=== PATIENT | female | born 1935 | race Caucasian/White ===

== ENCOUNTER 2020-07-31 21:16 | Inpatient (IN) ==
[2020-07-31] MEDS ORDERED: SODIUM CHLORIDE 0.9% 500 ML IV STA (21:50)
[2020-07-31] MEDS ORDERED: DILTIAZEM 50 MG/10 ML VIAL IV STA (22:06)
[2020-07-31 22:26] LABS: Basophils # 0.1 10*3/uL (0.0-0.2); Basophils % 0.4 % (0.0-0.8); Eosinophils # 0.2 10*3/uL (0.0-0.87); Eosinophils % 1.3 % (0.00-10.9); Immature Granulocytes % 0.5 %; Immature Granulocytes Absolute 0.08 #; Lymphocytes # 0.6 10*3/uL (1.4-4.0); Lymphocytes % 3.8 % (21.3-54.2); Mean Corpuscular HGB Conc 33.3 GM/DL (32-36); Mean Corpuscular Volume 90.1 FL (87-102); Mean Platelet Volume 11.6 FL (9.6-12.0); Monocytes % 2.4 % (1.7-12.7); Neutrophils % 91.6 % (38.7-73.9); Platelet Count 216 T/CUMM (130-400); Red Blood Count 4.33 MC/CUMM (3.8-5.5); White Blood Count 16.6 T/CUMM (4-12)
[2020-07-31 22:32] LABS: Alanine Aminotransferase 16 U/L (13-56); Albumin 3.4 G/DL (3.4-5.0); Alkaline Phosphatase 103 U/L (45-117); Aspartate Amino Transferase 16 U/L (0-37); Blood Urea Nitrogen 29 MG/DL (7-18); Carbon Dioxide 20 MMOL/L (21-32); Estimated Glom Filtration Rate 38 ML/MIN; Glucose 114 MG/DL (74-106); Osmolality,Calculated 289.1 MOS/KG (273-304); Sodium 142 MMOL/L (136-145); Total Protein 6.5 G/DL (6.4-8.2)
[2020-07-31 23:02] LABS: Eosinophils 1 % (0-10); Lymphocytes 3 % (20-55); Platelet Estimate Normal; Segmented Neutrophils 95 % (50-85); Total Cells Counted 100
[2020-07-31 23:04] LABS: Microcytosis Slight; Polychromasia Slight
[2020-07-31 23:05] LABS: Spherocytes Few
[2020-07-31] MEDS: DILTIAZEM INJ 100 MG in SODIUM CHLORIDE 0.9% 100 ML IV SCH (23:52)
[2020-08-01] MEDS ORDERED: ENOXAPARIN 40 MG/0.4 ML SYRINGE SUBCUT STA (00:09)
[2020-08-01] MEDS ORDERED: DEXTROSE 50% 25 GM/50 ML VIAL IV PRN (01:53)
[2020-08-01] MEDS ORDERED: GLUCAGON 1 MG VIAL IM PRN (01:53)
[2020-08-01] MEDS ORDERED: ONDANSETRON 4 MG/2 ML VIAL IV PRN (01:53)
[2020-08-01] MEDS ORDERED: MELATONIN 3 MG TABLET ONE (03:15)
[2020-08-01] MEDS: SODIUM CHLORIDE 0.9% 1,000 ML IV SCH ×2 (03:18→16:53)
[2020-08-01 05:14] LABS: Basophils # 0.1 10*3/uL (0.0-0.2); Basophils % 0.4 % (0.0-0.8); Eosinophils % 0.3 % (0.00-10.9); Hematocrit 38.2 VOL% (35.7-47.0); Hemoglobin 12.3 GM/DL (12.0-16.0); Immature Granulocytes % 0.7 %; Immature Granulocytes Absolute 0.11 #; Lymphocytes # 1.3 10*3/uL (1.4-4.0); Lymphocytes % 8.4 % (21.3-54.2); Mean Corpuscular HGB Conc 32.2 GM/DL (32-36); Mean Corpuscular Volume 91.6 FL (87-102); Mean Platelet Volume 11.3 FL (9.6-12.0); Monocytes % 8.5 % (1.7-12.7); Neutrophils % 81.7 % (38.7-73.9); Platelet Count 225 T/CUMM (130-400); Red Blood Count 4.17 MC/CUMM (3.8-5.5); Red Cell Distribution Width 14.9 % (9.3-17.3); White Blood Count 15.7 T/CUMM (4-12)
[2020-08-01 05:44] LABS: Osmolality,Calculated 286.3 MOS/KG (273-304); Potassium 4.2 MMOL/L (3.5-5.1); Risk Ratio 1.85; Thyroid Stimulating Hormone 1.87 uIU/ml (0.358-3.74); VLDL CHOLESTEROL 9.8 MG/DL
[2020-08-01 08:19] LABS: Bacteria,Urine Occasional /HPF (Few); Bilirubin,Urine Negative (Negative); Blood, Urine Negative (Negative); Glucose,Urine (UA) Negative (Negative); Ketones,Urine Negative (Negative); Mucus,Urine Occasional /LPF (Occasional); Nitrite,Urine Positive (Negative); Protein,Urine Negative; RBC,Urine 3 /HPF (0-4); Squamous Epithelial Cell,Urine Occasional /HPF (0-10); Urine Appearance CLEAR (Clear); Urine Color Yellow (Yellow); Urine Specific Gravity 1.023 (1.001-1.035); Urine Urobilinogen < 2.0 EU/DL (0.2-1.0)
[2020-08-01] MEDS ORDERED: carvediloL 6.25 MG TABLET PO SCH (09:00)
[2020-08-01] MEDS: METOPROLOL TARTRATE 25 MG TABLET PO SCH ×2 (10:15→20:28)
[2020-08-01] MEDS: LEVOFLOXACIN 500 MG TABLET PO SCH (10:15)
[2020-08-01] MEDS ORDERED: METOPROLOL TARTRATE 5 MG/5 ML VIAL IV STA (11:46)
[2020-08-01] MEDS: MELATONIN 3 MG TABLET PO PRN (20:29)
[2020-08-01] MEDS: ASPIRIN EC 81 MG TABLET PO SCH (20:29)
[2020-08-02] MEDS: DILTIAZEM INJ 100 MG in SODIUM CHLORIDE 0.9% 100 ML IV SCH (01:58)
[2020-08-02] MEDS: ENOXAPARIN 40 MG/0.4 ML SYRINGE SUBCUT SCH (05:45)
[2020-08-02 07:00] LABS: Basophils # 0.1 10*3/uL (0.0-0.2); Basophils % 0.5 % (0.0-0.8); Eosinophils # 0.2 10*3/uL (0.0-0.87); Eosinophils % 1.6 % (0.00-10.9); Hematocrit 36.7 VOL% (35.7-47.0); Hemoglobin 11.9 GM/DL (12.0-16.0); Immature Granulocytes % 0.6 %; Immature Granulocytes Absolute 0.07 #; Lymphocytes # 1.5 10*3/uL (1.4-4.0); Lymphocytes % 13.4 % (21.3-54.2); Mean Corpuscular HGB Conc 32.4 GM/DL (32-36); Mean Corpuscular Volume 90.6 FL (87-102); Mean Platelet Volume 11.9 FL (9.6-12.0); Monocytes % 12.3 % (1.7-12.7); Neutrophils % 71.6 % (38.7-73.9); Platelet Count 196 T/CUMM (130-400); Red Blood Count 4.05 MC/CUMM (3.8-5.5); Red Cell Distribution Width 15.3 % (9.3-17.3); White Blood Count 10.9 T/CUMM (4-12)
[2020-08-02 07:30] LABS: Calcium 9.1 MG/DL (8.5-10.1); Potassium 3.8 MMOL/L (3.5-5.1)
[2020-08-02] MEDS: METOPROLOL TARTRATE 50 MG TABLET PO SCH ×2 (08:54→21:31)
[2020-08-02] MEDS: LEVOFLOXACIN 500 MG TABLET PO SCH (08:54)
[2020-08-02] MEDS: ASPIRIN EC 81 MG TABLET PO SCH (21:31)
[2020-08-02] MEDS: MELATONIN 3 MG TABLET PO PRN (21:31)
[2020-08-03] MEDS: DILTIAZEM INJ 100 MG in SODIUM CHLORIDE 0.9% 100 ML IV SCH (03:15)
[2020-08-03] MEDS: ENOXAPARIN 40 MG/0.4 ML SYRINGE SUBCUT SCH (05:42)
[2020-08-03] MEDS ORDERED: SODIUM CHLORIDE 0.9% 1,000 ML IV SCH (08:00)
[2020-08-03] MEDS ORDERED: propofoL 200 MG/20 ML VIAL IV ONE (08:57)
[2020-08-03] MEDS ORDERED: ETOMIDATE 20 MG/10 ML VIAL IV ONE (08:57)
[2020-08-03] MEDS ORDERED: amLODIPine 10 MG TABLET PO SCH (09:00)
[2020-08-03] MEDS: METOPROLOL TARTRATE 50 MG TABLET PO SCH (09:59)
[2020-08-03] MEDS: LEVOFLOXACIN 500 MG TABLET PO SCH (09:59)
[2020-08-03 12:19] VITALS: BP 120/80
[2020-08-03] MEDS ORDERED: APIXABAN 2.5 MG TABLET PO SCH (21:00)
[2020-08-05 10:36] LABS: Metanephrine, Free 0.22 nmol/L (<0.50); Normetanephrine, Free 0.33 nmol/L (<0.90)
[2020-08-08 08:11] LABS: Renin Activity < 0.6 ng/mL/h
== END 2020-08-03 16:34 | disposition home or self-care (01) | DRG 309 ==
LOC: EDBD → EDUNIT# → N.ED 21:16 → N.EDINP 21:16 → OBSVTOIN 08-01 01:53 → N.EDINP 08-01 14:22 → N.2E 08-01 14:34 → N.TELES 08-01 15:54
PROVIDERS: ADMIT Internal Medicine Geriatric Medicine; ATTEND Internal Medicine Geriatric Medicine

== ENCOUNTER 2020-08-25 23:51 | Inpatient (IN) ==
[2020-08-26] MEDS ORDERED: ONDANSETRON 4 MG/2 ML VIAL ONE (00:49)
[2020-08-26 00:54] LABS: ABG Base Excess -1.4 MMOL/L (-2.5-2.5); ABG HCO3 23.1 MMOL/L (20-26); ABG Oxygen Saturation 87.8 % (95-100); ABG PCO2 32.5 MM HG (35-48); ABG PO2 54.8 MM HG (80-95); ABG TCO2 19.8 MMOL/L (23-27); Allen Test Positive
[2020-08-26] MEDS ORDERED: ACETAMINOPHEN 500 MG TABLET PO STA (01:11)
[2020-08-26] MEDS ORDERED: SODIUM CHLORIDE 0.9% 1,000 ML IV STA (01:11)
[2020-08-26] MEDS ORDERED: ACETAMINOPHEN 325 MG TABLET ONE (01:12)
[2020-08-26 01:23] LABS: Basophils # 0.1 10*3/uL (0.0-0.2); Basophils % 0.5 % (0.0-0.8); Eosinophils # 0.1 10*3/uL (0.0-0.87); Eosinophils % 0.8 % (0.00-10.9); Hematocrit 35.2 VOL% (35.7-47.0); Hemoglobin 11.1 GM/DL (12.0-16.0); Immature Granulocytes % 0.5 %; Immature Granulocytes Absolute 0.07 #; Lymphocytes # 1.2 10*3/uL (1.4-4.0); Lymphocytes % 8.5 % (21.3-54.2); Mean Corpuscular HGB Conc 31.5 GM/DL (32-36); Mean Corpuscular Volume 89.3 FL (87-102); Monocytes % 8.5 % (1.7-12.7); Neutrophils % 81.2 % (38.7-73.9); Platelet Count 312 T/CUMM (130-400); Red Blood Count 3.94 MC/CUMM (3.8-5.5); Red Cell Distribution Width 14.5 % (9.3-17.3); White Blood Count 14.2 T/CUMM (4-12)
[2020-08-26 01:39] LABS: Albumin 2.7 G/DL (3.4-5.0); Bilirubin,Total 0.4 MG/DL (0.2-1.0); Calcium 8.7 MG/DL (8.5-10.1); Osmolality,Calculated 281.4 MOS/KG (273-304); Potassium 3.2 MMOL/L (3.5-5.1); Total Protein 6.1 G/DL (6.4-8.2)
[2020-08-26] MEDS ORDERED: POTASSIUM CHLORIDE 20 MEQ TABLET PO STA (02:06)
[2020-08-26] MEDS ORDERED: FUROSEMIDE 40 MG/4 ML VIAL IV STA (02:31)
[2020-08-26 02:36] LABS: INR 1.2
[2020-08-26 03:20] LABS: Partial Thromboplastin Time 32.2 SECS (23.9-33.8)
[2020-08-26 03:40] LABS: Bacteria,Urine Occasional /HPF (Few); Bilirubin,Urine Negative (Negative); Blood, Urine Small mg/dL (Negative); Glucose,Urine (UA) Negative (Negative); Hyaline Casts,Urine 3 /LPF (0-3); Ketones,Urine Negative (Negative); Mucus,Urine Occasional /LPF (Occasional); Nitrite,Urine Negative (Negative); Protein,Urine Negative; RBC,Urine 1 /HPF (0-4); Squamous Epithelial Cell,Urine Occasional /HPF (0-10); Urine Appearance CLEAR (Clear); Urine Color Yellow (Yellow); Urine Specific Gravity 1.015 (1.001-1.035); Urine Urobilinogen < 2.0 EU/DL (0.2-1.0)
[2020-08-26] MEDS ORDERED: IPRATROPIUM 500 MCG/2.5 ML NEB RESP TX PRN (05:16)
[2020-08-26] MEDS: POTASSIUM CHLORIDE RIDER 10 MEQ/100 ML PREMIX IV SCH ×3 (06:32→11:17)
[2020-08-26] MEDS ORDERED: SODIUM CHLORIDE 0.45% 500 ML IV ONE (08:31)
[2020-08-26] MEDS: APIXABAN 2.5 MG TABLET PO SCH ×2 (08:43→20:59)
[2020-08-26] MEDS: LEVOFLOXACIN 750 MG TABLET PO SCH (08:44)
[2020-08-26] MEDS: METOPROLOL TARTRATE 5 MG/5 ML VIAL IV SCH ×2 (08:46→10:00)
[2020-08-26] MEDS ORDERED: LEVOFLOXACIN 500 MG TABLET PO SCH (09:00)
[2020-08-26] MEDS ORDERED: ASPIRIN CHEW 81 MG TABLET PO SCH (09:00)
[2020-08-26] MEDS ORDERED: FUROSEMIDE 40 MG/4 ML VIAL IV SCH (09:00)
[2020-08-26] MEDS ORDERED: METOPROLOL TARTRATE 50 MG TABLET PO SCH (09:00)
[2020-08-26] MEDS ORDERED: POTASSIUM CHLORIDE 20 MEQ TABLET PO ONE (10:27)
[2020-08-26] MEDS: ASCORBIC ACID 500 MG TABLET PO SCH ×2 (10:52→20:59)
[2020-08-26] MEDS: LOSARTAN 50 MG TABLET PO SCH (11:03)
[2020-08-26] MEDS: SPIRONOLACTONE 50 MG TABLET PO SCH (11:03)
[2020-08-26] MEDS: DIGOXIN 0.25 MG TABLET PO SCH (12:35)
[2020-08-26] MEDS: POTASSIUM CHLORIDE 8 MEQ CAPSULE PO SCH ×2 (15:24→20:59)
[2020-08-26] MEDS: ASPIRIN CHEW 81 MG TABLET PO SCH (20:59)
[2020-08-26] MEDS: METOPROLOL TARTRATE 100 MG TABLET PO SCH (21:00)
[2020-08-26] MEDS: MELATONIN 3 MG TABLET PO PRN (23:33)
[2020-08-27 04:51] LABS: Basophils % 0.4 % (0.0-0.8); Eosinophils # 0.3 10*3/uL (0.0-0.87); Eosinophils % 3.3 % (0.00-10.9); Hematocrit 33.3 VOL% (35.7-47.0); Hemoglobin 10.8 GM/DL (12.0-16.0); Immature Granulocytes % 0.4 %; Immature Granulocytes Absolute 0.04 #; Lymphocytes # 1.9 10*3/uL (1.4-4.0); Lymphocytes % 18.4 % (21.3-54.2); Mean Corpuscular HGB Conc 32.4 GM/DL (32-36); Mean Corpuscular Volume 86.9 FL (87-102); Mean Platelet Volume 11.1 FL (9.6-12.0); Monocytes % 11.3 % (1.7-12.7); Neutrophils % 66.2 % (38.7-73.9); Platelet Count 285 T/CUMM (130-400); Red Blood Count 3.83 MC/CUMM (3.8-5.5); Red Cell Distribution Width 14.5 % (9.3-17.3); White Blood Count 10.1 T/CUMM (4-12)
[2020-08-27 05:15] LABS: Calcium 8.9 MG/DL (8.5-10.1); Osmolality,Calculated 277.4 MOS/KG (273-304); Potassium 3.6 MMOL/L (3.5-5.1); Thyroid Stimulating Hormone 3.14 uIU/ml (0.358-3.74)
[2020-08-27] MEDS ORDERED: MAGNESIUM SULF RIDER 2 GM/50 ML PREMIX IV ONE (08:12)
[2020-08-27] MEDS ORDERED: FUROSEMIDE 40 MG TABLET PO SCH (09:00)
[2020-08-27] MEDS: ASCORBIC ACID 500 MG TABLET PO SCH ×2 (10:30→21:10)
[2020-08-27] MEDS: APIXABAN 2.5 MG TABLET PO SCH ×2 (10:30→21:09)
[2020-08-27] MEDS: LEVOFLOXACIN 750 MG TABLET PO SCH (10:30)
[2020-08-27] MEDS: POTASSIUM CHLORIDE 8 MEQ CAPSULE PO SCH ×3 (10:30→21:10)
[2020-08-27] MEDS: PANTOPRAZOLE 40 MG TABLET PO SCH (10:30)
[2020-08-27] MEDS: METOPROLOL TARTRATE 100 MG TABLET PO SCH ×2 (10:31→21:10)
[2020-08-27] MEDS: LOSARTAN 50 MG TABLET PO SCH (10:31)
[2020-08-27] MEDS: SPIRONOLACTONE 50 MG TABLET PO SCH (10:31)
[2020-08-27] MEDS: DIGOXIN 0.25 MG TABLET PO SCH (12:38)
[2020-08-27] MEDS: ASPIRIN CHEW 81 MG TABLET PO SCH (21:09)
[2020-08-28 06:47] LABS: Basophils # 0.1 10*3/uL (0.0-0.2); Basophils % 0.5 % (0.0-0.8); Eosinophils # 0.4 10*3/uL (0.0-0.87); Eosinophils % 4.5 % (0.00-10.9); Hematocrit 35.9 VOL% (35.7-47.0); Hemoglobin 11.8 GM/DL (12.0-16.0); Immature Granulocytes % 0.4 %; Immature Granulocytes Absolute 0.04 #; Lymphocytes # 1.4 10*3/uL (1.4-4.0); Lymphocytes % 14.9 % (21.3-54.2); Mean Corpuscular HGB Conc 32.9 GM/DL (32-36); Mean Corpuscular Volume 86.7 FL (87-102); Mean Platelet Volume 10.9 FL (9.6-12.0); Monocytes % 12.3 % (1.7-12.7); Neutrophils % 67.4 % (38.7-73.9); Platelet Count 288 T/CUMM (130-400); Red Blood Count 4.14 MC/CUMM (3.8-5.5); Red Cell Distribution Width 14.4 % (9.3-17.3); White Blood Count 9.5 T/CUMM (4-12)
[2020-08-28 07:01] LABS: Calcium 8.7 MG/DL (8.5-10.1); Osmolality,Calculated 274.5 MOS/KG (273-304); Potassium 3.5 MMOL/L (3.5-5.1)
[2020-08-28] MEDS ORDERED: ONDANSETRON ODT 4 MG TABLET PO PRN (08:17)
[2020-08-28] MEDS: ONDANSETRON 4 MG/2 ML VIAL IV PRN (08:31)
[2020-08-28] MEDS: SODIUM CHLORIDE 0.45% 1,000 ML IV SCH ×2 (09:22→21:26)
[2020-08-28] MEDS: ASCORBIC ACID 500 MG TABLET PO SCH ×2 (09:23→20:24)
[2020-08-28] MEDS: PANTOPRAZOLE 40 MG TABLET PO SCH (09:23)
[2020-08-28] MEDS: APIXABAN 2.5 MG TABLET PO SCH ×2 (09:23→20:25)
[2020-08-28] MEDS: DILTIAZEM 30 MG TABLET PO SCH ×3 (09:23→17:04)
[2020-08-28] MEDS: POTASSIUM CHLORIDE 8 MEQ CAPSULE PO SCH ×3 (09:23→20:24)
[2020-08-28] MEDS: LEVOFLOXACIN 750 MG TABLET PO SCH (09:24)
[2020-08-28] MEDS: METOPROLOL TARTRATE 100 MG TABLET PO SCH ×2 (09:24→20:24)
[2020-08-28] MEDS: ASPIRIN CHEW 81 MG TABLET PO SCH (20:24)
[2020-08-29] MEDS: DILTIAZEM 30 MG TABLET PO SCH ×2 (00:02→07:11)
[2020-08-29 06:29] LABS: Basophils % 0.4 % (0.0-0.8); Eosinophils # 0.5 10*3/uL (0.0-0.87); Eosinophils % 4.5 % (0.00-10.9); Hematocrit 37.9 VOL% (35.7-47.0); Hemoglobin 11.6 GM/DL (12.0-16.0); Immature Granulocytes % 0.5 %; Immature Granulocytes Absolute 0.05 #; Lymphocytes # 1.8 10*3/uL (1.4-4.0); Lymphocytes % 15.9 % (21.3-54.2); Mean Corpuscular HGB Conc 30.6 GM/DL (32-36); Mean Corpuscular Volume 90.7 FL (87-102); Mean Platelet Volume 11.1 FL (9.6-12.0); Monocytes % 11.8 % (1.7-12.7); Neutrophils % 66.9 % (38.7-73.9); Platelet Count 332 T/CUMM (130-400); Red Blood Count 4.18 MC/CUMM (3.8-5.5); Red Cell Distribution Width 14.5 % (9.3-17.3)
[2020-08-29 06:54] LABS: Calcium 8.7 MG/DL (8.5-10.1); Osmolality,Calculated 276.4 MOS/KG (273-304); Potassium 3.7 MMOL/L (3.5-5.1)
[2020-08-29] MEDS: SOTALOL 80 MG TABLET PO SCH ×2 (09:36→20:21)
[2020-08-29] MEDS: METOPROLOL TARTRATE 100 MG TABLET PO SCH ×2 (09:36→20:21)
[2020-08-29] MEDS: POTASSIUM CHLORIDE 8 MEQ CAPSULE PO SCH ×3 (09:36→20:20)
[2020-08-29] MEDS: LEVOFLOXACIN 750 MG TABLET PO SCH (09:36)
[2020-08-29] MEDS: PANTOPRAZOLE 40 MG TABLET PO SCH (09:37)
[2020-08-29] MEDS: ASCORBIC ACID 500 MG TABLET PO SCH ×2 (09:37→20:20)
[2020-08-29] MEDS: APIXABAN 2.5 MG TABLET PO SCH ×2 (09:37→20:20)
[2020-08-29] MEDS: SODIUM CHLORIDE 0.45% 1,000 ML IV SCH (13:58)
[2020-08-29] MEDS: ASPIRIN CHEW 81 MG TABLET PO SCH (20:21)
[2020-08-30 05:41] LABS: Basophils # 0.1 10*3/uL (0.0-0.2); Basophils % 0.5 % (0.0-0.8); Eosinophils # 0.6 10*3/uL (0.0-0.87); Eosinophils % 6.2 % (0.00-10.9); Hematocrit 36.5 VOL% (35.7-47.0); Hemoglobin 11.8 GM/DL (12.0-16.0); Immature Granulocytes % 0.5 %; Immature Granulocytes Absolute 0.05 #; Lymphocytes # 1.8 10*3/uL (1.4-4.0); Lymphocytes % 19.2 % (21.3-54.2); Mean Corpuscular HGB Conc 32.3 GM/DL (32-36); Mean Corpuscular Volume 86.9 FL (87-102); Mean Platelet Volume 10.5 FL (9.6-12.0); Monocytes % 12.3 % (1.7-12.7); Neutrophils % 61.3 % (38.7-73.9); Platelet Count 293 T/CUMM (130-400); Red Cell Distribution Width 14.4 % (9.3-17.3); White Blood Count 9.1 T/CUMM (4-12)
[2020-08-30 08:38] LABS: Calcium 8.7 MG/DL (8.5-10.1); Osmolality,Calculated 278.3 MOS/KG (273-304); Potassium 4.1 MMOL/L (3.5-5.1)
[2020-08-30] MEDS ORDERED: LOSARTAN 25 MG TABLET PO SCH (09:00)
[2020-08-30] MEDS ORDERED: lisinopriL 10 MG TABLET PO SCH (09:00)
[2020-08-30] MEDS: SOTALOL 80 MG TABLET PO SCH ×2 (09:52→20:39)
[2020-08-30] MEDS: APIXABAN 2.5 MG TABLET PO SCH ×2 (09:52→20:39)
[2020-08-30] MEDS: LEVOFLOXACIN 750 MG TABLET PO SCH (09:52)
[2020-08-30] MEDS: METOPROLOL TARTRATE 100 MG TABLET PO SCH ×2 (09:53→20:39)
[2020-08-30] MEDS: POTASSIUM CHLORIDE 8 MEQ CAPSULE PO SCH ×3 (09:53→20:39)
[2020-08-30] MEDS: ASCORBIC ACID 500 MG TABLET PO SCH ×2 (09:53→20:38)
[2020-08-30] MEDS: PANTOPRAZOLE 40 MG TABLET PO SCH (09:53)
[2020-08-30] MEDS: ASPIRIN CHEW 81 MG TABLET PO SCH (20:39)
[2020-08-30] MEDS: MELATONIN 3 MG TABLET PO PRN (20:39)
[2020-08-31 05:57] LABS: Basophils % 0.4 % (0.0-0.8); Eosinophils # 0.4 10*3/uL (0.0-0.87); Eosinophils % 3.7 % (0.00-10.9); Hemoglobin 11.6 GM/DL (12.0-16.0); Immature Granulocytes % 0.7 %; Immature Granulocytes Absolute 0.08 #; Lymphocytes # 1.8 10*3/uL (1.4-4.0); Lymphocytes % 16.2 % (21.3-54.2); Mean Corpuscular HGB Conc 31.4 GM/DL (32-36); Mean Corpuscular Volume 88.1 FL (87-102); Mean Platelet Volume 10.9 FL (9.6-12.0); Monocytes % 11.9 % (1.7-12.7); Neutrophils % 67.1 % (38.7-73.9); Platelet Count 302 T/CUMM (130-400); Red Cell Distribution Width 14.5 % (9.3-17.3); White Blood Count 11.1 T/CUMM (4-12)
[2020-08-31 06:13] LABS: Calcium 8.9 MG/DL (8.5-10.1); Osmolality,Calculated 275.5 MOS/KG (273-304); Potassium 3.8 MMOL/L (3.5-5.1)
[2020-08-31] MEDS ORDERED: METOPROLOL TARTRATE 50 MG TABLET PO SCH (09:00)
[2020-08-31] MEDS: APIXABAN 2.5 MG TABLET PO SCH ×2 (09:56→20:03)
[2020-08-31] MEDS: PANTOPRAZOLE 40 MG TABLET PO SCH (09:57)
[2020-08-31] MEDS: ASCORBIC ACID 500 MG TABLET PO SCH ×2 (09:57→20:03)
[2020-08-31] MEDS: LEVOFLOXACIN 750 MG TABLET PO SCH (09:57)
[2020-08-31] MEDS: POTASSIUM CHLORIDE 8 MEQ CAPSULE PO SCH ×3 (09:57→20:02)
[2020-08-31] MEDS: SOTALOL 80 MG TABLET PO SCH (09:58)
[2020-08-31] MEDS: LOSARTAN 50 MG TABLET PO SCH (10:10)
[2020-08-31] MEDS ORDERED: POTASSIUM CHLORIDE 20 MEQ TABLET PO ONE (13:43)
[2020-08-31] MEDS ORDERED: MAGNESIUM SULF RIDER 2 GM/50 ML PREMIX IV ONE (13:44)
[2020-08-31] MEDS: SODIUM CHLORIDE 0.45% 1,000 ML IV SCH (14:51)
[2020-08-31 15:54] LABS: Calcium 8.6 MG/DL (8.5-10.1); Osmolality,Calculated 275.8 MOS/KG (273-304); Potassium 3.6 MMOL/L (3.5-5.1)
[2020-08-31] MEDS: ASPIRIN CHEW 81 MG TABLET PO SCH (20:02)
[2020-08-31] MEDS: MELATONIN 3 MG TABLET PO PRN (20:02)
[2020-09-01] MEDS: SODIUM CHLORIDE 0.45% 1,000 ML IV SCH ×2 (03:42→17:34)
[2020-09-01] MEDS: ONDANSETRON 4 MG/2 ML VIAL IV PRN ×2 (03:42→16:11)
[2020-09-01 04:03] LABS: Basophils % 0.3 % (0.0-0.8); Eosinophils # 0.3 10*3/uL (0.0-0.87); Eosinophils % 2.2 % (0.00-10.9); Hematocrit 31.6 VOL% (35.7-47.0); Hemoglobin 10.7 GM/DL (12.0-16.0); Immature Granulocytes % 0.7 %; Immature Granulocytes Absolute 0.09 #; Lymphocytes # 1.9 10*3/uL (1.4-4.0); Lymphocytes % 14.4 % (21.3-54.2); Mean Corpuscular HGB Conc 33.9 GM/DL (32-36); Mean Corpuscular Volume 85.6 FL (87-102); Mean Platelet Volume 11.2 FL (9.6-12.0); Monocytes % 10.9 % (1.7-12.7); Neutrophils % 71.5 % (38.7-73.9); Platelet Count 248 T/CUMM (130-400); Red Blood Count 3.69 MC/CUMM (3.8-5.5); Red Cell Distribution Width 14.6 % (9.3-17.3); White Blood Count 13.1 T/CUMM (4-12)
[2020-09-01 04:30] LABS: Calcium 8.4 MG/DL (8.5-10.1); Potassium 3.5 MMOL/L (3.5-5.1)
[2020-09-01] MEDS ORDERED: POTASSIUM CHLORIDE 20 MEQ TABLET PO ONE (06:22)
[2020-09-01] MEDS: ASCORBIC ACID 500 MG TABLET PO SCH ×2 (08:32→20:30)
[2020-09-01] MEDS: APIXABAN 2.5 MG TABLET PO SCH ×2 (08:33→20:30)
[2020-09-01] MEDS: PANTOPRAZOLE 40 MG TABLET PO SCH (08:33)
[2020-09-01] MEDS: LOSARTAN 50 MG TABLET PO SCH ×2 (08:33→20:30)
[2020-09-01] MEDS: POTASSIUM CHLORIDE 8 MEQ CAPSULE PO SCH ×3 (08:33→20:30)
[2020-09-01] MEDS ORDERED: SOTALOL 80 MG TABLET PO SCH (09:00)
[2020-09-01] MEDS ORDERED: SOTALOL 80 MG TABLET PO ONE (09:13)
[2020-09-01] MEDS ORDERED: cloNIDine 0.1 MG TABLET PO PRN (17:17)
[2020-09-01] MEDS: LOPERAMIDE 2 MG CAPSULE PO PRN (20:30)
[2020-09-01] MEDS: ASPIRIN CHEW 81 MG TABLET PO SCH (20:30)
[2020-09-02 04:22] LABS: Basophils % 0.3 % (0.0-0.8); Eosinophils # 0.4 10*3/uL (0.0-0.87); Hematocrit 32.9 VOL% (35.7-47.0); Hemoglobin 10.5 GM/DL (12.0-16.0); Immature Granulocytes % 0.6 %; Immature Granulocytes Absolute 0.07 #; Lymphocytes # 1.8 10*3/uL (1.4-4.0); Lymphocytes % 14.9 % (21.3-54.2); Mean Corpuscular HGB Conc 31.9 GM/DL (32-36); Mean Corpuscular Volume 86.8 FL (87-102); Mean Platelet Volume 10.7 FL (9.6-12.0); Monocytes % 11.4 % (1.7-12.7); Neutrophils % 69.8 % (38.7-73.9); Platelet Count 244 T/CUMM (130-400); Red Blood Count 3.79 MC/CUMM (3.8-5.5); Red Cell Distribution Width 14.6 % (9.3-17.3); White Blood Count 12.2 T/CUMM (4-12)
[2020-09-02 04:47] LABS: Calcium 8.4 MG/DL (8.5-10.1); Osmolality,Calculated 279.3 MOS/KG (273-304); Potassium 3.8 MMOL/L (3.5-5.1)
[2020-09-02] MEDS: APIXABAN 2.5 MG TABLET PO SCH ×2 (08:35→20:51)
[2020-09-02] MEDS: POTASSIUM CHLORIDE 8 MEQ CAPSULE PO SCH ×3 (08:35→20:51)
[2020-09-02] MEDS: ASCORBIC ACID 500 MG TABLET PO SCH ×2 (08:35→20:51)
[2020-09-02] MEDS: LOSARTAN 50 MG TABLET PO SCH ×2 (08:36→20:51)
[2020-09-02] MEDS: PANTOPRAZOLE 40 MG TABLET PO SCH (08:36)
[2020-09-02] MEDS: amLODIPine 2.5 MG TABLET PO SCH (09:24)
[2020-09-02] MEDS: LOPERAMIDE 2 MG CAPSULE PO PRN (16:57)
[2020-09-02] MEDS: ASPIRIN CHEW 81 MG TABLET PO SCH (20:51)
[2020-09-03 06:03] LABS: Basophils # 0.1 10*3/uL (0.0-0.2); Basophils % 0.4 % (0.0-0.8); Eosinophils # 0.3 10*3/uL (0.0-0.87); Eosinophils % 2.4 % (0.00-10.9); Hematocrit 35.2 VOL% (35.7-47.0); Hemoglobin 11.3 GM/DL (12.0-16.0); Immature Granulocytes % 0.9 %; Immature Granulocytes Absolute 0.12 #; Lymphocytes # 2.2 10*3/uL (1.4-4.0); Lymphocytes % 15.6 % (21.3-54.2); Mean Corpuscular HGB Conc 32.1 GM/DL (32-36); Mean Corpuscular Volume 86.9 FL (87-102); Mean Platelet Volume 11.2 FL (9.6-12.0); Neutrophils % 70.7 % (38.7-73.9); Platelet Count 298 T/CUMM (130-400); Red Blood Count 4.05 MC/CUMM (3.8-5.5); Red Cell Distribution Width 14.6 % (9.3-17.3)
[2020-09-03 06:23] LABS: Calcium 9.1 MG/DL (8.5-10.1); Osmolality,Calculated 274.5 MOS/KG (273-304); Potassium 4.2 MMOL/L (3.5-5.1)
[2020-09-03] MEDS: PANTOPRAZOLE 40 MG TABLET PO SCH (09:08)
[2020-09-03] MEDS: POTASSIUM CHLORIDE 8 MEQ CAPSULE PO SCH ×3 (09:08→21:16)
[2020-09-03] MEDS: amLODIPine 2.5 MG TABLET PO SCH (09:08)
[2020-09-03] MEDS: ASCORBIC ACID 500 MG TABLET PO SCH ×2 (09:08→21:16)
[2020-09-03] MEDS: LOSARTAN 50 MG TABLET PO SCH ×2 (09:08→21:16)
[2020-09-03] MEDS: APIXABAN 2.5 MG TABLET PO SCH ×2 (09:09→21:16)
[2020-09-03] MEDS: LOPERAMIDE 2 MG CAPSULE PO PRN (10:51)
[2020-09-03] MEDS: ONDANSETRON 4 MG/2 ML VIAL IV PRN (11:51)
[2020-09-03] MEDS: ACETAMINOPHEN 500 MG TABLET PO PRN (14:36)
[2020-09-03] MEDS: ASPIRIN CHEW 81 MG TABLET PO SCH (21:16)
[2020-09-04] MEDS: ONDANSETRON 4 MG/2 ML VIAL IV PRN (05:35)
[2020-09-04 06:27] LABS: Basophils # 0.1 10*3/uL (0.0-0.2); Basophils % 0.5 % (0.0-0.8); Eosinophils # 0.4 10*3/uL (0.0-0.87); Eosinophils % 3.2 % (0.00-10.9); Hematocrit 33.9 VOL% (35.7-47.0); Immature Granulocytes % 0.7 %; Immature Granulocytes Absolute 0.08 #; Lymphocytes % 16.5 % (21.3-54.2); Mean Corpuscular HGB Conc 32.4 GM/DL (32-36); Mean Corpuscular Volume 85.6 FL (87-102); Mean Platelet Volume 11.1 FL (9.6-12.0); Monocytes % 11.6 % (1.7-12.7); Neutrophils % 67.5 % (38.7-73.9); Platelet Count 308 T/CUMM (130-400); Red Blood Count 3.96 MC/CUMM (3.8-5.5); Red Cell Distribution Width 14.4 % (9.3-17.3)
[2020-09-04 06:52] LABS: Calcium 8.5 MG/DL (8.5-10.1); Potassium 3.7 MMOL/L (3.5-5.1)
[2020-09-04] MEDS ORDERED: SOTALOL 80 MG TABLET PO ONE ×2 (08:09→09:32)
[2020-09-04] MEDS: ASCORBIC ACID 500 MG TABLET PO SCH ×2 (09:43→21:36)
[2020-09-04] MEDS: POTASSIUM CHLORIDE 8 MEQ CAPSULE PO SCH ×3 (09:43→21:36)
[2020-09-04] MEDS: APIXABAN 2.5 MG TABLET PO SCH ×2 (09:43→21:36)
[2020-09-04] MEDS: LOSARTAN 50 MG TABLET PO SCH ×2 (09:44→21:36)
[2020-09-04] MEDS: PANTOPRAZOLE 40 MG TABLET PO SCH (09:44)
[2020-09-04] MEDS: amLODIPine 5 MG TABLET PO SCH ×2 (09:45→09:51)
[2020-09-04] MEDS ORDERED: SOTALOL 80 MG TABLET PO SCH (10:00)
[2020-09-04] MEDS: LOPERAMIDE 2 MG CAPSULE PO PRN (20:16)
[2020-09-04] MEDS ORDERED: LOPERAMIDE 2 MG CAPSULE PO ONE (20:30)
[2020-09-04] MEDS: ASPIRIN CHEW 81 MG TABLET PO SCH (21:36)
[2020-09-05] MEDS: ASCORBIC ACID 500 MG TABLET PO SCH ×2 (08:38→21:58)
[2020-09-05] MEDS: SPIRONOLACTONE 25 MG TABLET PO SCH (08:38)
[2020-09-05] MEDS: POTASSIUM CHLORIDE 8 MEQ CAPSULE PO SCH ×3 (08:38→22:02)
[2020-09-05] MEDS: LOSARTAN 50 MG TABLET PO SCH ×2 (08:38→21:56)
[2020-09-05] MEDS: MULTIVITAMIN (CENTRUM) TABLET PO SCH (08:38)
[2020-09-05] MEDS: PANTOPRAZOLE 40 MG TABLET PO SCH (08:38)
[2020-09-05] MEDS: APIXABAN 2.5 MG TABLET PO SCH ×2 (08:38→21:53)
[2020-09-05] MEDS: amLODIPine 5 MG TABLET PO SCH (08:39)
[2020-09-05] MEDS: carvediloL 3.125 MG TABLET PO SCH ×2 (12:10→21:53)
[2020-09-05] MEDS: ASPIRIN CHEW 81 MG TABLET PO SCH (21:56)
[2020-09-06 05:13] LABS: Calcium 8.4 MG/DL (8.5-10.1); Potassium 3.5 MMOL/L (3.5-5.1)
[2020-09-06] MEDS ORDERED: POTASSIUM CHLORIDE 20 MEQ TABLET PO ONE (07:50)
[2020-09-06] MEDS: APIXABAN 2.5 MG TABLET PO SCH ×2 (09:24→20:29)
[2020-09-06] MEDS: POTASSIUM CHLORIDE 8 MEQ CAPSULE PO SCH ×2 (09:24→20:29)
[2020-09-06] MEDS: METOPROLOL SUCCINATE XL 25 MG TABLET PO SCH (09:24)
[2020-09-06] MEDS: PANTOPRAZOLE 40 MG TABLET PO SCH (09:24)
[2020-09-06] MEDS: ASCORBIC ACID 500 MG TABLET PO SCH ×2 (09:24→20:29)
[2020-09-06] MEDS: LOSARTAN 50 MG TABLET PO SCH ×2 (09:25→20:29)
[2020-09-06] MEDS: amLODIPine 5 MG TABLET PO SCH (09:25)
[2020-09-06] MEDS: SPIRONOLACTONE 25 MG TABLET PO SCH (09:25)
[2020-09-06] MEDS: MULTIVITAMIN (CENTRUM) TABLET PO SCH (09:25)
[2020-09-06] MEDS: LOPERAMIDE 2 MG CAPSULE PO PRN ×2 (09:28→18:00)
[2020-09-06] MEDS: ASPIRIN CHEW 81 MG TABLET PO SCH (20:29)
[2020-09-07 07:38] LABS: Calcium 8.8 MG/DL (8.5-10.1); Osmolality,Calculated 276.5 MOS/KG (273-304); Potassium 4.1 MMOL/L (3.5-5.1)
[2020-09-07 08:32] VITALS: BP 154/58
[2020-09-07] MEDS: MULTIVITAMIN (CENTRUM) TABLET PO SCH (10:08)
[2020-09-07] MEDS: PANTOPRAZOLE 40 MG TABLET PO SCH (10:09)
[2020-09-07] MEDS: ASCORBIC ACID 500 MG TABLET PO SCH (10:09)
[2020-09-07] MEDS: METOPROLOL SUCCINATE XL 25 MG TABLET PO SCH (10:09)
[2020-09-07] MEDS: SPIRONOLACTONE 25 MG TABLET PO SCH (10:09)
[2020-09-07] MEDS: APIXABAN 2.5 MG TABLET PO SCH (10:09)
[2020-09-07] MEDS: LOSARTAN 50 MG TABLET PO SCH (10:09)
[2020-09-07] MEDS: amLODIPine 5 MG TABLET PO SCH (10:09)
[2020-09-07] MEDS: POTASSIUM CHLORIDE 8 MEQ CAPSULE PO SCH (10:11)
[2020-09-07] MEDS: ACETAMINOPHEN 500 MG TABLET PO PRN (13:07)
== END 2020-09-07 15:08 | disposition swing bed (61) | DRG 291 ==
LOC: EDUNIT# → N.ED 23:51 → N.EDINP 08-26 05:13 → SUATTDRO 08-26 05:13 → N.EDINP 08-26 06:15 → N.TELEN 08-26 06:33 → N.CC 08-31 14:02 → N.TELES 09-02 10:43
PROVIDERS: ADMIT Internal Medicine Interventional Cardiology; ATTEND Internal Medicine Interventional Cardiology